=== PATIENT | female | born 1955 | race Caucasian/White ===

== ENCOUNTER 2019-01-24 21:49 | Emergency (ER) | payer BC ==
[2019-01-24] MEDS ORDERED: Lidocaine 1% w/Epinephrine 1:100K 20 ML VIAL ONE (22:28)
--- NOTE | 2019-01-24 22:29 | RAD ---
Exam:Right tibia fibula 2 views HISTORY: Laceration. Evaluate for foreign body. COMPARISON: None FINDINGS: Soft tissue swelling involving the posterior-medial right lower extremity. No definite radi opaque foreign body. Limited evaluation due to overlying bandage material. No fracture. No cortical irregularity or periosteal reaction. IMPRESSION: No definite radiopaque foreign body. Limited evaluation due to overlying bandage material .
[2019-01-24] MEDS ORDERED: Adacel (T-DAP) 0.5 ML SYRINGE ONE (22:57)
== END 2019-01-24 23:45 | disposition home or self-care (01) ==
LOC: ERS 21:49
DX: S81.811A Laceration without foreign body, right lower leg, initial encounter (principal); F32.9 Major depressive disorder, single episode, unspecified; Z79.899 Other long term (current) drug therapy; Z23 Encounter for immunization; W25.XXXA Contact with sharp glass, initial encounter
CPT/HCPCS: 12002; 90471; 90715

== ENCOUNTER 2020-06-23 17:34 | Inpatient (IN) | payer BC, OTHER ==
[~2020-06-23 17:34] MED LIST: Iopamidol-370 76% 500 ML 1 ML ONE
[2020-06-23] MEDS ORDERED: Ondansetron ODT 4 MG TAB ONE (17:42)
[2020-06-23 18:30] LABS: #Lymphocytes 1.6 thou/uL (1.20-3.40); #Monocytes 0.5 thou/uL (0.11-0.59); #Neutrophils 4.8 thou/uL (1.40-6.50); %Basophils 0.6 % (0.0-1.0); %Eosinophils 0.4 % (0.0-10.0); %Lymphocytes 23.1 % (21.0-51.0); %Monocytes 6.7 % (0.0-10.0); %Neutrophils 69.2 % (42.0-75.0); Mean Corpuscular HGB CONC 33.4 g/dL (32.0-36.0); Mean Corpuscular Hemoglobin 30.2 pg (27.0-31.0); Mean Corpuscular Volume 90.4 fL (78.0-98.0); Mean Platelet Volume 6.6 fL (7.4-10.4); Platelet Count 369 thou/uL (130-400); RBC Distribution Width 11.3 % (11.5-14.5); Red Blood Cell (RBC) Count 3.62 mill/uL (4.20-5.40); White Blood Cell (WBC) Count 6.9 thou/uL (4.8-10.8)
[2020-06-23 18:47] LABS: ALT (SGPT) 29 U/L (8-55); AST (SGOT) 34 U/L (5-34); Albumin 3.9 g/dL (3.4-4.8); Alkaline Phosphatase 66 U/L (40-110); Anion Gap 14 mmol/L (10-20); BUN (Urea Nitrogen) 19 mg/dL (9.8-20.1); Bilirubin, Total 0.3 mg/dL (0.2-1.2); Calc. Creatinine Clearance 0 mL/min (70-130); Carbon Dioxide 22 mmol/L (23-31); Chloride 104 mmol/L (98-107); Globulin 2.7 g/dL (2.4-3.5); Glucose 103 mg/dL (80-115); Lipase 26 U/L (8-78); Potassium 3.3 mmol/L (3.5-5.1); Protein, Total 6.6 g/dL (5.8-8.1); Sodium 137 mmol/L (136-145)
[2020-06-23] MEDS ORDERED: Dextrose 50% Abboject 50 ML SYRINGE SLOW IVP PRN (22:00)
[2020-06-23] MEDS ORDERED: Morphine 2 MG/ML VIAL SLOW IVP PRN (22:00)
[2020-06-23] MEDS ORDERED: Dextrose 5% in Water 1,000 ML IV PRN (22:00)
[2020-06-23] MEDS ORDERED: hydrALAZINE 20 MG/ML VIAL SLOW IVP PRN (22:00)
[2020-06-23] MEDS ORDERED: Ondansetron PF 4 MG/2 ML Vial IVP PRN ×2 (22:00→22:09)
[2020-06-23] MEDS ORDERED: Ketorolac Tromethamine 30 MG/ML VIAL ONE (22:29)
[2020-06-23] MEDS ORDERED: traMADol HCl 50 MG TAB ONE (22:29)
[2020-06-23] MEDS: traMADol HCl 50 MG TAB PO SCH (23:41)
[2020-06-23] MEDS ORDERED: Acetaminophen 500 MG TAB ONE (23:42)
[2020-06-23 23:44] LABS: Phosphorus 1.8 mg/dL (2.3-4.7)
[2020-06-23 23:45] LABS: Magnesium 1.7 mg/dL (1.6-2.6)
[2020-06-23] MEDS: Sodium Chloride 0.9% 1,000 ML IV SCH (23:49)
[2020-06-23] MEDS: Acetaminophen 500 MG TAB PO SCH (23:49)
[2020-06-23 23:53] VITALS: BMI 30.1
[2020-06-24] MEDS ORDERED: Magnesium Sulfate 2 GM in Sodium Chloride 0.9% 100 ML IVPB SCH (01:01)
[2020-06-24] MEDS ORDERED: Potassium Phosphate 30 MMOL, Magnesium Sulfate 2 GM in Sodium Chloride 0.9% 250 ML IVPB SCH (01:01)
[2020-06-24] MEDS ORDERED: Acetaminophen 500 MG TAB ONE (04:56)
[2020-06-24] MEDS ORDERED: traMADol HCl 50 MG TAB ONE (04:56)
[2020-06-24] MEDS: traMADol HCl 50 MG TAB PO SCH ×4 (05:00→22:00)
[2020-06-24] MEDS: Acetaminophen 500 MG TAB PO SCH ×4 (05:00→22:00)
[2020-06-24 05:51] LABS: SARS-CoV-2 PCR by NAA Not Detected (NotDetected)
[2020-06-24] MEDS ORDERED: Ibuprofen 200 MG TAB ONE (06:32)
[2020-06-24] MEDS: Ibuprofen 600 MG TAB PO SCH ×3 (06:37→22:00)
[2020-06-24] MEDS ORDERED: Cyclobenzaprine 10 MG TAB ONE (08:06)
[2020-06-24] MEDS: Cyclobenzaprine 10 MG TAB PO PRN ×2 (08:21→22:03)
[2020-06-24] MEDS ORDERED: Famotidine/PF 20 mg/2ml Vial ONE (08:28)
[2020-06-24] MEDS: Famotidine/PF 20 mg/2ml Vial SLOW IVP SCH ×2 (08:39→20:56)
[2020-06-24] MEDS: Gabapentin 300 MG CAP PO SCH ×3 (08:39→20:57)
[2020-06-24] MEDS: Polyethylene Glycol 3350 17 GM Packet PO SCH (08:41)
[2020-06-24] MEDS: Senokot S 8.6-50 MG TAB PO SCH ×2 (08:41→20:57)
[2020-06-24] MEDS ORDERED: Potassium Phosphate 30 MMOL, Magnesium Sulfate 2 GM in Sodium Chloride 0.9% 250 ML 250 ML IVPB SCH (08:45)
[2020-06-24 09:04] LABS: #Lymphocytes 1.1 thou/uL (1.20-3.40); #Monocytes 0.5 thou/uL (0.11-0.59); %Basophils 0.2 % (0.0-1.0); %Eosinophils 0.2 % (0.0-10.0); %Lymphocytes 23.5 % (21.0-51.0); %Monocytes 10.9 % (0.0-10.0); %Neutrophils 65.2 % (42.0-75.0); Mean Corpuscular HGB CONC 33.6 g/dL (32.0-36.0); Mean Corpuscular Hemoglobin 30.5 pg (27.0-31.0); Mean Corpuscular Volume 90.8 fL (78.0-98.0); Mean Platelet Volume 6.7 fL (7.4-10.4); Platelet Count 344 thou/uL (130-400); RBC Distribution Width 11.3 % (11.5-14.5); Red Blood Cell (RBC) Count 3.59 mill/uL (4.20-5.40); White Blood Cell (WBC) Count 4.6 thou/uL (4.8-10.8)
[2020-06-24 09:19] LABS: Anion Gap 15 mmol/L (10-20); BUN (Urea Nitrogen) 17 mg/dL (9.8-20.1); Calc. Creatinine Clearance 92 mL/min (70-130); Calcium 8.1 mg/dL (7.8-10.44); Carbon Dioxide 19 mmol/L (23-31); Chloride 110 mmol/L (98-107); Glucose 112 mg/dL (80-115); Magnesium 2.4 mg/dL (1.6-2.6); Potassium 4.1 mmol/L (3.5-5.1); Sodium 140 mmol/L (136-145)
[2020-06-24 09:24] LABS: Phosphorus 3.7 mg/dL (2.3-4.7)
[2020-06-24] MEDS: Sodium Chloride 0.9% 1,000 ML IV SCH (10:17)
[2020-06-24] MEDS: traMADol HCl 50 MG TAB PO PRN ×2 (10:21→22:04)
[2020-06-24] MEDS ORDERED: FLU VACC QS2020-21(6MOS UP)/PF 60 MCG/0.5 ML SYRINGE IM ONE (12:30)
[2020-06-24] MEDS: Enoxaparin Sodium 40 MG/0.4 ML SYRINGE SC SCH (20:56)
[2020-06-25] MEDS: traMADol HCl 50 MG TAB PO SCH ×4 (04:39→21:56)
[2020-06-25] MEDS: Acetaminophen 500 MG TAB PO SCH ×4 (04:40→21:55)
[2020-06-25] MEDS: Ibuprofen 600 MG TAB PO SCH ×3 (05:51→21:55)
[2020-06-25] MEDS: Gabapentin 300 MG CAP PO SCH ×3 (08:22→20:18)
[2020-06-25] MEDS: Polyethylene Glycol 3350 17 GM Packet PO SCH (08:22)
[2020-06-25] MEDS: Senokot S 8.6-50 MG TAB PO SCH ×2 (08:22→21:34)
[2020-06-25] MEDS: Famotidine/PF 20 mg/2ml Vial SLOW IVP SCH (08:25)
[2020-06-25] MEDS ORDERED: FLU VACC QS2020-21(6MOS UP)/PF 60 MCG/0.5 ML SYRINGE IM ONE (09:00)
[2020-06-25] MEDS ORDERED: Bisacodyl 10 MG SUPP PR SCH (10:00)
[2020-06-25] MEDS: Cyclobenzaprine 10 MG TAB PO PRN (20:17)
[2020-06-25] MEDS: Enoxaparin Sodium 40 MG/0.4 ML SYRINGE SC SCH (20:18)
[2020-06-26] MEDS: traMADol HCl 50 MG TAB PO PRN (00:04)
[2020-06-26] MEDS: Acetaminophen 500 MG TAB PO SCH ×2 (03:28→08:47)
[2020-06-26] MEDS: traMADol HCl 50 MG TAB PO SCH ×2 (03:29→08:47)
[2020-06-26] MEDS: Ibuprofen 600 MG TAB PO SCH ×2 (06:35→13:33)
[2020-06-26] MEDS: Gabapentin 300 MG CAP PO SCH ×2 (08:45→13:34)
[2020-06-26] MEDS: Polyethylene Glycol 3350 17 GM Packet PO SCH (08:49)
[2020-06-26] MEDS: Senokot S 8.6-50 MG TAB PO SCH (08:49)
[2020-06-26 11:43] VITALS: BP 113/63; TEMP 98.2
== END 2020-06-26 14:20 | disposition home health service (06) | DRG 184 ==
LOC: ERS 17:34 → ERHOLD 22:05 → SJJU 06-24 09:47
PROVIDERS: ADMIT Surgery; ATTEND Surgery
DX: S22.43XA Multiple fractures of ribs, bilateral, initial encounter for closed fracture (principal); S22.20XA Unspecified fracture of sternum, initial encounter for closed fracture; Z20.822 Contact with and (suspected) exposure to COVID-19; Z96.641 Presence of right artificial hip joint; F32.9 Major depressive disorder, single episode, unspecified; F90.9 Attention-deficit hyperactivity disorder, unspecified type; G47.9 Sleep disorder, unspecified; S42.122A Displaced fracture of acromial process, left shoulder, initial encounter for closed fracture; E87.6 Hypokalemia; E83.39 Other disorders of phosphorus metabolism; K21.9 Gastro-esophageal reflux disease without esophagitis; S42.002A Fracture of unspecified part of left clavicle, initial encounter for closed fracture; V49.40XA Driver injured in collision with unspecified motor vehicles in traffic accident, initial encounter; Z98.51 Tubal ligation status; Z88.1 Allergy status to other antibiotic agents; Z79.899 Other long term (current) drug therapy
CPT/HCPCS: 36415; 70450; 71045; 71260; 72125; 74177; 80048; 80053; 83690; 83735; 84100; 84484; 85025; 87635; 90471; 90662; 93005; 94640; 96374; G0008; G0390; J1650; J1885; J3475; J7030; J7050; J7620; Q0162; Q9967; S0028; U0003; U0005

== ENCOUNTER 2020-09-01 15:46 | Outpatient (CLI) | payer BC ==
[2020-09-02 11:48] LABS: SARS-CoV-2 PCR by NAA Not Detected (NotDetected)
== END 2020-09-01 15:47 | disposition home or self-care (01) ==
LOC: LABBT 15:46
PROVIDERS: ATTEND Orthopaedic Surgery
DX: Z01.812 Encounter for preprocedural laboratory examination (principal); S42.002A Fracture of unspecified part of left clavicle, initial encounter for closed fracture; Z20.822 Contact with and (suspected) exposure to COVID-19
CPT/HCPCS: U0003; U0005

== ENCOUNTER 2020-09-03 06:51 | Day surgery (SDC) | payer BC ==
[2020-09-02 10:47] VITALS: BMI 28.9
[2020-09-03] MEDS ORDERED: Fentanyl 100 MCG/2 ML VIAL ONE ×5 (06:54→12:31)
[2020-09-03] MEDS ORDERED: Bupivacaine PF 0.5% 30 ML VIAL ONE (06:55)
[2020-09-03] MEDS ORDERED: PROPOFOL 200 MG/20 ML VIAL ONE (07:38)
[2020-09-03] MEDS ORDERED: Lidocaine 1% PF 5 ML VIAL ONE (07:38)
[2020-09-03] MEDS ORDERED: Rocuronium Bromide 10 MG/ML (10ML VIAL) ONE (07:38)
[2020-09-03] MEDS ORDERED: Glycopyrrolate 0.2 MG/ML 5 ML SYRINGE ONE (07:38)
[2020-09-03] MEDS ORDERED: Ondansetron PF 4 MG/2 ML Vial ONE (07:38)
[2020-09-03] MEDS ORDERED: Dexamethasone 20 MG/5 ML VIAL ONE (07:38)
[2020-09-03] MEDS ORDERED: HYDROmorphone 0.5 MG/0.5 ML SYRINGE ONE (10:42)
[2020-09-03] MEDS ORDERED: HYDROcodone/Acetaminophen 5/325 mg Tablet ONE ×2 (13:18→13:42)
== END 2020-09-03 14:45 | disposition home or self-care (01) ==
LOC: SDC 06:51
PROVIDERS: ATTEND Orthopaedic Surgery
PROC: 0PSB04Z Reposition Left Clavicle with Internal Fixation Device, Open Approach (ICD-10-PCS; principal; 2020-09-03)
DX: S42.022A Displaced fracture of shaft of left clavicle, initial encounter for closed fracture (principal); M19.90 Unspecified osteoarthritis, unspecified site; G47.9 Sleep disorder, unspecified; Z79.899 Other long term (current) drug therapy; Z88.1 Allergy status to other antibiotic agents; Z96.641 Presence of right artificial hip joint
CPT/HCPCS: 76000; C1713; J0690; J1170; J3010; S0020

== ENCOUNTER 2021-12-30 14:22 | Emergency (ER) | payer BC ==
[2021-12-30] MEDS ORDERED: HYDROcodone/Acetaminophen 5/325 mg Tablet ONE (17:44)
== END 2021-12-30 18:10 | disposition home or self-care (01) ==
LOC: ERS 14:22
DX: M25.552 Pain in left hip (principal); M25.562 Pain in left knee; W01.0XXA Fall on same level from slipping, tripping and stumbling without subsequent striking against object, initial encounter
CPT/HCPCS: 72192